=== PATIENT | male | born 1950 | race Caucasian/White ===

== ENCOUNTER → 2020-07-11 | Outpatient (CLI) | payer OTHER, MEDICARE ==
[~2020-07-11] MED LIST: CCLB10TRX; CODE-54; CYCL10TA45; DLT240CCR; GBPN600T; OXAPROZIN; SIMV40TA2; SRTR100T
--- NOTE | 2020-07-11 13:28 | Diagnostic Imaging Report ---
PROCEDURE: US carotid duplex, bilateral. TECHNIQUE: Multiple real-time grayscale images were obtained over the carotid arteries in various projections, bilaterally. Additional spectral analysis and color Doppler duplex images were also obtained. INDICATION: Tachycardia There are no prior studies available for comparison. There is mild soft plaque formation in both carotid systems. There is a small amount of isolated hard plaque in the mid common carotid artery on the left. The flow velocities failed to show any sign of a hemodynamically significant stenosis of either carotid system. Both vertebral arteries were noted and there was antegrade flow bilaterally. IMPRESSION: There is mild atherosclerotic disease involving both carotid systems. There is no evidence for a hemodynamically significant stenosis of the common or internal carotid arteries. Parameters based on the consensus panel [employer] and Doppler ultrasound criteria published September 2003, Radiology, Volume 229. DOPPLER (peak systolic velocity M/S Right Left CCA 0.72 0.90 ICA Proximal 0.57 0.46 ICA Mid 0.56 0.49 ICA Distal 0.57 0.48 RATIO 0.8 0.5 ECA 1.03 0.97 VERT 0.45 0.28 Dictated by: Dictated on workstation # [id number]
== END ==
LOC: CARD 10:59
PROVIDERS: ATTEND Nurse Practitioner Adult Health
DX: I65.23 Occlusion and stenosis of bilateral carotid arteries (principal); R00.0 Tachycardia, unspecified; R00.1 Bradycardia, unspecified
CPT/HCPCS: 93306; 93880

== ENCOUNTER → 2020-08-25 | Outpatient (CLI) | payer MEDICARE, OTHER ==
[~2020-08-25] MED LIST changes: +CATHETER FLUSH 10 ML SYR IV PRN; +HOLD METFORMIN - RECEIVED CONTRAST 20 ML VIAL IV SCH; +IOHEXOL 350 MG/ML 100 ML (OMNIPAQUE 350) VIAL IV ONE; +NS 100 ML (IVPB) BAG IV ONE; +RT-ALBUTEROL SULF 2.5 MG/3 ML PRE-MIX VIAL INH ONE
[2020-08-25 08:08] LABS: CREATININE SERUM 1.22 MG/DL (0.60-1.30)
--- NOTE | 2020-08-25 09:43 | Diagnostic Imaging Report ---
PROCEDURE: CT chest with contrast only. TECHNIQUE: Multiple contiguous axial images were obtained through the chest after administration of intravenous contrast. Auto Exposure Controls were utilized during the CT exam to meet ALARA standards for radiation dose reduction. INDICATION: Cough, dyspnea, allergic rhinitis. COMPARISON: None available FINDINGS: No significant adenopathy within chest. Mild scattered vascular calcifications without aneurysmal dilatation of the thoracic aorta. Calcifications within the coronary arteries. The heart is within normal limits in size. No significant pericardial effusion. No pleural effusion. No pneumothorax. Passive atelectasis is noted within the medial right lower lobe adjacent to prominent osteophytes. The right lung is otherwise clear. The trachea is patent. No saddle pulmonary embolus. Tiny hiatal hernia. Diffusely decreased density of the liver. Calcified splenic granuloma. Nonobstructing bilateral renal calculi. Right total shoulder reverse arthroplasty. Scattered osseous degenerative changes without acute osseous abnormality. IMPRESSION: No acute abnormality identified within the chest. Nonobstructing bilateral renal calculi. Fatty infiltration of the liver. Dictated by: Dictated on workstation # [id number]
== END ==
LOC: RT 08:00
PROVIDERS: ATTEND Internal Medicine Critical Care Medicine
DX: J30.9 Allergic rhinitis, unspecified (principal); N20.0 Calculus of kidney; K76.0 Fatty (change of) liver, not elsewhere classified; E66.9 Obesity, unspecified
CPT/HCPCS: 36415; 71260; 82565; 84520; 94060; 94726; 94729

== ENCOUNTER → 2023-05-20 | Outpatient (RCR) | payer OTHER ==
[~2023-05-20] MED LIST changes: -CATHETER FLUSH 10 ML SYR IV PRN; -HOLD METFORMIN - RECEIVED CONTRAST 20 ML VIAL IV SCH; -IOHEXOL 350 MG/ML 100 ML (OMNIPAQUE 350) VIAL IV ONE; -NS 100 ML (IVPB) BAG IV ONE; -RT-ALBUTEROL SULF 2.5 MG/3 ML PRE-MIX VIAL INH ONE
== END ==
PROVIDERS: ATTEND Nurse Practitioner Family
DX: M54.50 Low back pain, unspecified (principal)

== ENCOUNTER 2023-06-08 11:18 | Outpatient (RCR) | payer OTHER | END 2023-06-20 | disposition home or self-care (01) | PROVIDERS: ATTEND Nurse Practitioner Family | DX: M54.50 Low back pain, unspecified (principal) ==